=== PATIENT | male | born 1955 | race Caucasian/White ===

== ENCOUNTER → 2017-02-27 | Outpatient (CLI) | payer OTHER, BC ==
[~2017-02-27] MED LIST: AMLO10TA2 PO; ATOR40TA PO; GEMF600T3 PO; LISI1TAB7 PO; MECO10002 PO; OMEP-110 PO; VARD20TA2 PO
[2017-02-27 12:20] LABS: ASPARTATE AMINO TRANSFERASE 16 U/L (15-37); BLOOD UREA NITROGEN 15 mg/dL (7-18)
[2017-02-27 12:32] LABS: PATH.CAST-FLAG NOT PRESENT; SPERM-FLAG NOT PRESENT; SRC-FLAG NOT PRESENT; XTAL-FLAG NOT PRESENT; YLC-FLAG NOT PRESENT
== END | disposition home or self-care (01) ==
LOC: STAR 11:04
PROVIDERS: ATTEND Neurological Surgery
DX: Z01.818 Encounter for other preprocedural examination (principal); M48.06 Spinal stenosis, lumbar region; R79.1 Abnormal coagulation profile
CPT/HCPCS: 36415; 71020; 80053; 81001; 85025; 85610; 85730; 87086; 93005

== ENCOUNTER → 2017-03-04 | Outpatient (CLI) | payer OTHER, BC | END | disposition home or self-care (01) | LOC: CVU 07:43 | PROVIDERS: ATTEND Internal Medicine Cardiovascular Disease | DX: R94.31 Abnormal electrocardiogram [ECG] [EKG] (principal); I44.7 Left bundle-branch block, unspecified | CPT/HCPCS: 93306 ==

== ENCOUNTER → 2017-03-06 | Outpatient (CLI) | payer OTHER, BC ==
[~2017-03-06] MED LIST changes: +OXYC-302 PO; +REGADENOSON 0.4 MG/5 ML SYRINGE ONE; +TIZA4TAB9 PO
== END | disposition home or self-care (01) ==
LOC: CFH 07:38
PROVIDERS: ATTEND Internal Medicine Cardiovascular Disease
DX: R07.9 Chest pain, unspecified (principal); R94.31 Abnormal electrocardiogram [ECG] [EKG]
CPT/HCPCS: 78452; 93017; A9502; J2785

== ENCOUNTER 2017-03-11 09:44 | Observation (INO) | payer OTHER, BC ==
[~2017-03-11] VITALS: Ht 182.9 cm; Wt 123.0 kg
[~2017-03-11 09:44] MED LIST changes: +BACITRACIN 50,000 UNIT ONE; +BUPIVACAINE/PF-EPI 0.5% 1:200K ONE; -OXYC-302 PO; -REGADENOSON 0.4 MG/5 ML SYRINGE ONE; +THROMBIN 20,000 UNIT VIAL TP ONE; +THROMBIN 5,000 UNIT VIAL TP ONE; -TIZA4TAB9 PO
[2017-03-11] MEDS ORDERED: LACTATED RINGERS 1,000 ML IV SCH (10:12)
[2017-03-11 10:13] VITALS: BP 156/93
[2017-03-11] MEDS ORDERED: LIDOCAINE 1%, 2ML SQ PRN (10:30)
[2017-03-11] MEDS ORDERED: BUPIVACAINE/PF-EPI 0.5% 1:200K ONE (11:36)
[2017-03-11] MEDS ORDERED: MIDAZOLAM 1 MG/ML, 2ML ONE (12:53)
[2017-03-11] MEDS ORDERED: FENTANYL PF 250 MCG/5ML ONE (12:53)
[2017-03-11] MEDS ORDERED: CEFAZOLIN 1,000 MG ONE (13:31)
[2017-03-11] MEDS ORDERED: GLYCOPYRROLATE 0.2MG/1ML ONE (13:31)
[2017-03-11] MEDS ORDERED: ROCURONIUM 10 MG/ML ONE (13:31)
[2017-03-11] MEDS ORDERED: DEXAMETHASONE 4 MG/ML, 1ML ONE (13:31)
[2017-03-11] MEDS ORDERED: SUCCINYLCHOLINE 20 MG/ML, 10ML ONE (13:31)
[2017-03-11] MEDS ORDERED: PROPOFOL 10 MG/ML, 20ML ONE (13:31)
[2017-03-11] MEDS ORDERED: ONDANSETRON 2MG/ML, 2ML ONE ×2 (13:31→16:46)
[2017-03-11] MEDS ORDERED: NEOSTIGMINE 1 MG/ML, 10ML ONE (13:31)
[2017-03-11] MEDS ORDERED: HYDROmorphone 1 MG/ML, 1ML ONE (14:16)
[2017-03-11] MEDS ORDERED: hydrALAzine 20 MG/ML, 1ML IV PRN (14:30)
[2017-03-11] MEDS ORDERED: EPHEDRINE 50 MG/ML, 1ML IVPush PRN (14:30)
[2017-03-11] MEDS ORDERED: METOPROLOL 1 MG/ML, 5ML IV PRN (14:30)
[2017-03-11] MEDS ORDERED: ONDANSETRON 2MG/ML, 2ML IVPush PRN ×2 (14:30→15:30)
[2017-03-11] MEDS ORDERED: LABETALOL 5MG/ML, 20ML IV PRN (14:30)
[2017-03-11] MEDS ORDERED: OXYcodone 5 MG/5 ML ORAL.SOL UDC PO PRN (14:30)
[2017-03-11] MEDS ORDERED: METOCLOPRAMIDE 5 MG/ML, 2ML IV PRN (14:30)
[2017-03-11] MEDS ORDERED: HYDROmorphone 1 MG/ML, 1ML IV PRN (14:30)
[2017-03-11] MEDS ORDERED: ACETAMINOPHEN 325 MG TABLET PO PRN (14:30)
[2017-03-11] MEDS ORDERED: PROMETHAZINE 25 MG/ML, 1ML IV PRN (14:30)
[2017-03-11] MEDS ORDERED: MEPERIDINE/PF 100 MG/ML IM PRN (15:30)
[2017-03-11] MEDS ORDERED: MAGNESIUM HYDROXIDE 8%, 30ML UDC PO PRN (15:30)
[2017-03-11] MEDS ORDERED: HYDROmorphone PCA 30 MG/30 ML IV PRN (15:30)
[2017-03-11] MEDS ORDERED: OXYcodone/APAP 5/325MG TABLET PO PRN (15:30)
[2017-03-11] MEDS ORDERED: DIPHENHYDRAMINE 50 MG/ML, 1ML IVPush PRN (15:30)
[2017-03-11] MEDS ORDERED: morphine SULFATE 10 MG/ML, 1ML IVPush PRN (15:30)
[2017-03-11] MEDS ORDERED: PHARMACY MAY ADJ FOR RENAL FX MC PRN (15:30)
[2017-03-11] MEDS ORDERED: TIZANIDINE 4MG TABLET PO PRN (15:30)
[2017-03-11] MEDS ORDERED: BISACODYL 10 MG SUPP PR PRN (15:30)
[2017-03-11] MEDS ORDERED: PROMETHAZINE 25 MG/ML, 1ML IM PRN (15:30)
[2017-03-11] MEDS ORDERED: HYDROcodone/APAP 10/325 MG TABLET PO PRN (15:30)
[2017-03-11] MEDS ORDERED: DIAZEPAM 5 MG TABLET PO PRN (15:30)
[2017-03-11] MEDS ORDERED: HYDROmorphone PCA 30 MG/30 ML ONE (15:38)
[2017-03-11] MEDS ORDERED: FENTANYL PF 100 MCG/2ML ONE (15:38)
[2017-03-11] MEDS: FENTANYL PF 100 MCG/2ML IV PRN ×2 (15:40→15:56)
[2017-03-11] MEDS ORDERED: OXYcodone 5 MG/5 ML ORAL.SOL UDC ONE (15:58)
[2017-03-11 17:05] VITALS: BP 116/75
[2017-03-11 19:31] VITALS: BP 113/72
[2017-03-11] MEDS ORDERED: ATORVASTATIN 40 MG TABLET PO SCH (21:00)
[2017-03-11] MEDS: NS + 20MEQ KCL 1,000 ML IV SCH (21:41)
[2017-03-11] MEDS: CEFAZOLIN PMX 1GM/50ML 50 ML IVPB SCH (21:41)
[2017-03-11] MEDS: SODIUM CHLORIDE FLUSH 10ML SYR IVF SCH (22:54)
[2017-03-11 23:36] VITALS: BP 126/80
[2017-03-12 02:00] VITALS: BP 141/75
[2017-03-12 04:31] VITALS: BP 141/75
[2017-03-12] MEDS: CEFAZOLIN PMX 1GM/50ML 50 ML IVPB SCH (05:23)
[2017-03-12] MEDS: NS + 20MEQ KCL 1,000 ML IV SCH (08:00)
[2017-03-12 08:20] VITALS: BP 156/98
[2017-03-12] MEDS: SODIUM CHLORIDE FLUSH 10ML SYR IVF SCH (08:45)
[2017-03-12] MEDS ORDERED: TEMPLATE NON-FORMULARY MED. (Lisinopril/Hydrochlorothiazide** (Lisinopril-Hctz 20-25 Mg Ta PO SCH (09:00)
[2017-03-12] MEDS ORDERED: HYDROCHLOROTHIAZIDE 25 MG TABLET PO SCH (09:00)
[2017-03-12] MEDS ORDERED: SENNA/DOCUSATE TABLET PO SCH (09:00)
[2017-03-12] MEDS ORDERED: OMEPRAZOLE 20 MG CAPSULE.DR PO SCH (09:00)
[2017-03-12] MEDS ORDERED: AMLODIPINE 5 MG TABLET PO SCH (09:00)
[2017-03-12] MEDS ORDERED: LISINOPRIL 20 MG TABLET PO SCH (09:00)
[2017-03-12] MEDS ORDERED: OXYC-302 PO (12:03)
[2017-03-12] MEDS ORDERED: TIZA4TAB9 PO (12:03)
== END 2017-03-12 12:23 | disposition home or self-care (01) ==
LOC: OUT 09:44 → ORIP 15:26 → 4NOR 16:58 → DCLOUNGE 03-12 11:56
PROVIDERS: ADMIT Neurological Surgery; ATTEND Neurological Surgery
DX: M48.06 Spinal stenosis, lumbar region (principal)
CPT/HCPCS: 63017; 72100; 96365; 96375; 97161; 97165; G0378; J0330; J0690; J1100; J1170; J2250; J2405; J2704; J2710; J3010; J3480; J7120; J3490

== ENCOUNTER 2018-04-16 14:03 | Inpatient (IN) | payer BC, OTHER ==
[~2018-04-16] VITALS: Ht 182.9 cm; Wt 122.8 kg
[~2018-04-16 14:03] MED LIST changes: -BACITRACIN 50,000 UNIT ONE; -BUPIVACAINE/PF-EPI 0.5% 1:200K ONE; +OXYC-302 PO; -THROMBIN 20,000 UNIT VIAL TP ONE; -THROMBIN 5,000 UNIT VIAL TP ONE; +TIZA4TAB9 PO
[2018-04-16 14:55] LABS: BASOPHILS # (AUTO) 0.04 x10^3/uL (0-0.1); BASOPHILS % (AUTO) 0 % (0-1); EOSINOPHILS # (AUTO) 0.05 x10^3/uL (0-0.4); EOSINOPHILS % (AUTO) 0 % (1-7); LYMPHOCYTES % (AUTO) 10 % (22-44); MD NO; MEAN CORPUSCULAR HEMOGLOBIN 29.7 pg (27.5-34.5); MEAN CORPUSCULAR VOLUME 87.3 fL (81-97); MEAN PLATELET VOLUME 8.2 fL (7.4-10.4); MONOCYTES # (AUTO) 0.96 x10^3/uL (0.2-0.8); MONOCYTES % (AUTO) 8 % (2-9); NEUTROPHILS # (AUTO) 10.32 x10^3/uL (1.8-6.8); NEUTROPHILS % (AUTO) 82 % (42-75); PLATELET COUNT 320 x10^3/uL (130-400); RED BLOOD COUNT 5.18 x10^6/uL (4.38-5.82); RED CELL DISTRIBUTION WIDTH 13.6 % (9.4-14.8)
[2018-04-16 15:05] LABS: ALANINE AMINOTRANSFERASE 44 U/L (12-78); ALBUMIN 4.4 g/dL (3.4-5.0); ANION GAP 7 mmol/L (5-15); CALCIUM 9.2 mg/dL (8.5-10.1); CHLORIDE 108 mmol/L (98-107); CREATININE 1.05 mg/dL (0.7-1.3)
[2018-04-16 15:07] LABS: ALKALINE PHOSPHATASE 86 U/L (45-117)
[2018-04-16] MEDS ORDERED: CYAN100028 PO (15:12)
[2018-04-16] MEDS ORDERED: DEXAMETHASONE 4 MG/ML, 5ML ONE (15:40)
[2018-04-16] MEDS ORDERED: IBUPROFEN 200 MG TABLET ONE (15:40)
[2018-04-16] MEDS ORDERED: DEXAMETHASONE 4 MG/ML, 1ML PO ONE (16:00)
[2018-04-16] MEDS ORDERED: IBUPROFEN 200 MG TABLET PO ONE (16:00)
[2018-04-16] MEDS ORDERED: CEFAZOLIN PMX 1GM/50ML 50 ML ONE (16:03)
[2018-04-16] MEDS ORDERED: CEFAZOLIN PMX 1GM/50ML 50 ML IV ONE (16:30)
[2018-04-16] MEDS ORDERED: SODIUM CHLORIDE 0.9% 1,000ML IVBOLUS ONE (16:30)
[2018-04-16] MEDS ORDERED: VANCOMYCIN PER PHARMACY IV ONE (16:30)
[2018-04-16] MEDS ORDERED: VANCOMYCIN 2,400 MG in SODIUM CHLORIDE 0.9% 500 ML IV ONE (16:30)
[2018-04-16] MEDS ORDERED: SODIUM CHLORIDE FLUSH 10ML SYR IVF ONE (17:00)
[2018-04-16] MEDS ORDERED: ONDANSETRON ODT 4 MG PO PRN (17:30)
[2018-04-16] MEDS ORDERED: VARDENAFIL HCL 20 MG PO SCH (17:30)
[2018-04-16] MEDS ORDERED: ONDANSETRON 2MG/ML, 2ML IVPush PRN (17:30)
[2018-04-16] MEDS ORDERED: DIPHENHYDRAMINE 25 MG CAPSULE PO PRN (17:30)
[2018-04-16] MEDS ORDERED: hydrALAzine 20 MG/ML, 1ML IVPush PRN (17:30)
[2018-04-16] MEDS ORDERED: VANCOMYCIN PER PHARMACY MC PRN (17:30)
[2018-04-16] MEDS ORDERED: GADOBUTROL 10 MMOL/10 ML PFS ONE (18:11)
[2018-04-16 18:30] VITALS: BP 150/87
[2018-04-16] MEDS ORDERED: PHARMACOKINETIC CONSULTATION MC ONE (19:00)
[2018-04-16] MEDS ORDERED: PHARMACOKINETIC MONITORING MC PRN (19:00)
[2018-04-16] MEDS: CEFEPIME 2 GM in DEXTROSE 5% 100 ML IV SCH (22:26)
[2018-04-16] MEDS: ATORVASTATIN 40 MG TABLET PO SCH (22:36)
[2018-04-16] MEDS: KETOROLAC 30 MG/1 ML IVPush PRN (22:41)
[2018-04-17 03:13] VITALS: BP 128/74
[2018-04-17 05:39] LABS: BASOPHILS # (AUTO) 0.01 x10^3/uL (0-0.1); BASOPHILS % (AUTO) 0 % (0-1); EOSINOPHILS % (AUTO) 0 % (1-7); LYMPHOCYTES # (AUTO) 0.63 x10^3/uL (1-3.4); LYMPHOCYTES % (AUTO) 7 % (22-44); MD NO; MEAN CORPUSCULAR HEMOGLOBIN 29.8 pg (27.5-34.5); MEAN CORPUSCULAR HGB CONC 34.1 g/dL (33.2-36.2); MEAN CORPUSCULAR VOLUME 87.3 fL (81-97); MEAN PLATELET VOLUME 8.1 fL (7.4-10.4); MONOCYTES # (AUTO) 0.23 x10^3/uL (0.2-0.8); MONOCYTES % (AUTO) 3 % (2-9); NEUTROPHILS # (AUTO) 8.26 x10^3/uL (1.8-6.8); NEUTROPHILS % (AUTO) 90 % (42-75); PLATELET COUNT 300 x10^3/uL (130-400); RED BLOOD COUNT 4.74 x10^6/uL (4.38-5.82); RED CELL DISTRIBUTION WIDTH 13.3 % (9.4-14.8)
[2018-04-17 05:40] LABS: ANION GAP 7 mmol/L (5-15); CALCIUM 8.7 mg/dL (8.5-10.1); CHLORIDE 108 mmol/L (98-107)
[2018-04-17 05:41] LABS: CREATININE 1.06 mg/dL (0.7-1.3)
[2018-04-17] MEDS: CEFEPIME 2 GM in DEXTROSE 5% 100 ML IV SCH (06:00)
[2018-04-17 07:10] VITALS: BP 146/92
[2018-04-17] MEDS: HYDROCHLOROTHIAZIDE 25 MG TABLET PO SCH (07:38)
[2018-04-17] MEDS: OMEPRAZOLE 20 MG CAPSULE.DR PO SCH (07:38)
[2018-04-17] MEDS: AMLODIPINE 5 MG TABLET PO SCH (07:39)
[2018-04-17] MEDS: CYANOCOBALAMIN 1,000 MCG TABLET PO SCH (07:39)
[2018-04-17] MEDS: LISINOPRIL 20 MG TABLET PO SCH (07:39)
[2018-04-17] MEDS: KETOROLAC 30 MG/1 ML IVPush PRN ×2 (09:53→19:09)
[2018-04-17] MEDS ORDERED: VANCOMYCIN 2,400 MG in SODIUM CHLORIDE 0.9% 500 ML IV SCH (11:00)
[2018-04-17 12:21] VITALS: BP 168/79
[2018-04-17] MEDS ORDERED: CEFEPIME 2 GM in SODIUM CHLORIDE 0.9% 100 ML IV SCH (14:30)
[2018-04-17 14:39] LABS: HCT (SEDRATE) 41.4 % (39.2-51.8)
[2018-04-17] MEDS: ERTAPENEM 1 GM in SODIUM CHLORIDE 0.9% 50 ML IV SCH (17:08)
[2018-04-17] MEDS: ATORVASTATIN 40 MG TABLET PO SCH (19:51)
[2018-04-17 19:55] VITALS: BP 127/78
[2018-04-18] MEDS: KETOROLAC 30 MG/1 ML IVPush PRN ×4 (01:11→18:26)
[2018-04-18 01:19] VITALS: BP 157/92
[2018-04-18 06:01] LABS: BASOPHILS # (AUTO) 0.04 x10^3/uL (0-0.1); BASOPHILS % (AUTO) 1 % (0-1); EOSINOPHILS # (AUTO) 0.04 x10^3/uL (0-0.4); EOSINOPHILS % (AUTO) 1 % (1-7); LYMPHOCYTES # (AUTO) 1.08 x10^3/uL (1-3.4); LYMPHOCYTES % (AUTO) 14 % (22-44); MD NO; MEAN CORPUSCULAR HEMOGLOBIN 29.7 pg (27.5-34.5); MEAN CORPUSCULAR HGB CONC 33.9 g/dL (33.2-36.2); MEAN CORPUSCULAR VOLUME 87.6 fL (81-97); MEAN PLATELET VOLUME 8.4 fL (7.4-10.4); MONOCYTES # (AUTO) 0.69 x10^3/uL (0.2-0.8); MONOCYTES % (AUTO) 9 % (2-9); NEUTROPHILS # (AUTO) 6.08 x10^3/uL (1.8-6.8); NEUTROPHILS % (AUTO) 77 % (42-75); PLATELET COUNT 251 x10^3/uL (130-400); RED BLOOD COUNT 4.31 x10^6/uL (4.38-5.82); RED CELL DISTRIBUTION WIDTH 13.9 % (9.4-14.8)
[2018-04-18 06:06] LABS: ANION GAP 7 mmol/L (5-15); CALCIUM 8.4 mg/dL (8.5-10.1); CHLORIDE 110 mmol/L (98-107); CREATININE 0.93 mg/dL (0.7-1.3)
[2018-04-18 06:50] VITALS: BP 154/93
[2018-04-18] MEDS: CYANOCOBALAMIN 1,000 MCG TABLET PO SCH (09:00)
[2018-04-18] MEDS: LISINOPRIL 20 MG TABLET PO SCH (09:39)
[2018-04-18] MEDS: HYDROCHLOROTHIAZIDE 25 MG TABLET PO SCH (09:39)
[2018-04-18] MEDS: OMEPRAZOLE 20 MG CAPSULE.DR PO SCH (09:40)
[2018-04-18] MEDS: AMLODIPINE 5 MG TABLET PO SCH (09:41)
[2018-04-18] MEDS: ACETAMINOPHEN 325 MG TABLET PO PRN ×2 (11:41→16:47)
[2018-04-18 14:00] VITALS: BP 157/92
[2018-04-18] MEDS: ERTAPENEM 1 GM in SODIUM CHLORIDE 0.9% 50 ML IV SCH (16:47)
[2018-04-18] MEDS: ATORVASTATIN 40 MG TABLET PO SCH (19:51)
[2018-04-18 20:00] VITALS: BP 143/99
[2018-04-19] MEDS: KETOROLAC 30 MG/1 ML IVPush PRN ×2 (00:27→09:56)
[2018-04-19 00:29] VITALS: BP 159/91
[2018-04-19 05:52] LABS: BASOPHILS # (AUTO) 0.03 x10^3/uL (0-0.1); BASOPHILS % (AUTO) 1 % (0-1); EOSINOPHILS # (AUTO) 0.14 x10^3/uL (0-0.4); EOSINOPHILS % (AUTO) 3 % (1-7); LYMPHOCYTES # (AUTO) 1.36 x10^3/uL (1-3.4); LYMPHOCYTES % (AUTO) 28 % (22-44); MD NO; MEAN CORPUSCULAR HEMOGLOBIN 29.6 pg (27.5-34.5); MEAN CORPUSCULAR HGB CONC 33.9 g/dL (33.2-36.2); MEAN CORPUSCULAR VOLUME 87.3 fL (81-97); MEAN PLATELET VOLUME 7.9 fL (7.4-10.4); MONOCYTES # (AUTO) 0.58 x10^3/uL (0.2-0.8); MONOCYTES % (AUTO) 12 % (2-9); NEUTROPHILS # (AUTO) 2.75 x10^3/uL (1.8-6.8); NEUTROPHILS % (AUTO) 57 % (42-75); PLATELET COUNT 235 x10^3/uL (130-400); RED CELL DISTRIBUTION WIDTH 13.4 % (9.4-14.8)
[2018-04-19 06:03] LABS: ANION GAP 6 mmol/L (5-15); CALCIUM 8.6 mg/dL (8.5-10.1); CHLORIDE 109 mmol/L (98-107); CREATININE 0.97 mg/dL (0.7-1.3)
[2018-04-19 08:15] VITALS: BP 137/79
[2018-04-19] MEDS: HYDROCHLOROTHIAZIDE 25 MG TABLET PO SCH (08:31)
[2018-04-19] MEDS: CYANOCOBALAMIN 1,000 MCG TABLET PO SCH (08:31)
[2018-04-19] MEDS: OMEPRAZOLE 20 MG CAPSULE.DR PO SCH (08:31)
[2018-04-19] MEDS: LISINOPRIL 20 MG TABLET PO SCH (08:32)
[2018-04-19] MEDS: AMLODIPINE 5 MG TABLET PO SCH (08:32)
[2018-04-19 13:30] VITALS: BP 157/69
[2018-04-19] MEDS: ERTAPENEM 1 GM in SODIUM CHLORIDE 0.9% 50 ML IV SCH (17:21)
[2018-04-19] MEDS: ATORVASTATIN 40 MG TABLET PO SCH (20:38)
[2018-04-19 21:01] VITALS: BP 154/85
[2018-04-20 02:50] VITALS: BP 139/85
[2018-04-20 05:38] LABS: BASOPHILS # (AUTO) 0.05 x10^3/uL (0-0.1); BASOPHILS % (AUTO) 1 % (0-1); EOSINOPHILS # (AUTO) 0.17 x10^3/uL (0-0.4); EOSINOPHILS % (AUTO) 3 % (1-7); LYMPHOCYTES # (AUTO) 1.44 x10^3/uL (1-3.4); LYMPHOCYTES % (AUTO) 25 % (22-44); MD NO; MEAN CORPUSCULAR HEMOGLOBIN 29.7 pg (27.5-34.5); MEAN CORPUSCULAR HGB CONC 34.6 g/dL (33.2-36.2); MEAN CORPUSCULAR VOLUME 85.9 fL (81-97); MEAN PLATELET VOLUME 8.2 fL (7.4-10.4); MONOCYTES # (AUTO) 0.57 x10^3/uL (0.2-0.8); MONOCYTES % (AUTO) 10 % (2-9); NEUTROPHILS # (AUTO) 3.61 x10^3/uL (1.8-6.8); NEUTROPHILS % (AUTO) 62 % (42-75); PLATELET COUNT 252 x10^3/uL (130-400); RED BLOOD COUNT 4.45 x10^6/uL (4.38-5.82); RED CELL DISTRIBUTION WIDTH 13.3 % (9.4-14.8)
[2018-04-20 05:48] LABS: CHLORIDE 106 mmol/L (98-107)
[2018-04-20 06:03] LABS: ANION GAP 9 mmol/L (5-15); CREATININE 0.88 mg/dL (0.7-1.3)
[2018-04-20 07:37] VITALS: BP 158/85
[2018-04-20] MEDS: AMLODIPINE 5 MG TABLET PO SCH (08:07)
[2018-04-20] MEDS: LISINOPRIL 20 MG TABLET PO SCH (08:08)
[2018-04-20] MEDS: OMEPRAZOLE 20 MG CAPSULE.DR PO SCH (08:08)
[2018-04-20] MEDS: HYDROCHLOROTHIAZIDE 25 MG TABLET PO SCH (08:08)
[2018-04-20] MEDS: CYANOCOBALAMIN 1,000 MCG TABLET PO SCH (08:09)
[2018-04-20 15:14] VITALS: BP 137/88
[2018-04-20] MEDS: ERTAPENEM 1 GM in SODIUM CHLORIDE 0.9% 50 ML IV SCH (16:11)
== END 2018-04-20 18:18 | disposition home or self-care (01) | DRG 863 ==
LOC: ED 16:18 → EDIP 16:41 → 3NE 18:21
PROVIDERS: ADMIT Internal Medicine; ATTEND Internal Medicine
PROC: 02HV33Z Insertion of Infusion Device into Superior Vena Cava, Percutaneous Approach (ICD-10-PCS; principal; 2018-04-20)
PROC: B548ZZA Ultrasonography of Superior Vena Cava, Guidance (ICD-10-PCS; 2018-04-20)
DX: T81.4XXA Infection following a procedure, initial encounter (principal); M27.2 Inflammatory conditions of jaws; D72.829 Elevated white blood cell count, unspecified; E66.9 Obesity, unspecified; E78.00 Pure hypercholesterolemia, unspecified; I10 Essential (primary) hypertension; K08.89 Other specified disorders of teeth and supporting structures; L27.0 Generalized skin eruption due to drugs and medicaments taken internally; K21.9 Gastro-esophageal reflux disease without esophagitis; M54.9 Dorsalgia, unspecified; G89.29 Other chronic pain; Y83.9 Surgical procedure, unspecified as the cause of abnormal reaction of the patient, or of later complication, without mention of misadventure at the time of the procedure; Z68.36 Body mass index [BMI] 36.0-36.9, adult; Y92.89 Other specified places as the place of occurrence of the external cause; Z88.0 Allergy status to penicillin
CPT/HCPCS: 36415; 36569; 70543; 76937; 77001; 80048; 80053; 83605; 83735; 84100; 84145; 85025; 85651; 86140; 87040; 96365; 96368; A9585; J0690; J1100; J1335; J1885; J3370; C1751; J7030; J7040